=== PATIENT | female | born 1965 | race Caucasian/White ===

== ENCOUNTER 2018-05-05 01:53 | Emergency (ER) | payer SELFPAY ==
[~2018-05-05] VITALS: Ht 157.5 cm; Wt 49.0 kg
[~2018-05-05 01:53] MED LIST: DIPH25CA39 PO; ESCI5TAB PO; LAMO200T34 PO; LORA-654 PO; LURA20TA PO; SERT20CO7 PO; TRAZ150T79 PO
[2018-05-05 03:45] VITALS: BP 153/90
[2018-05-05] MEDS ORDERED: cefTRIAXone SOD 1,000 MG VL IM ONE (04:15)
[2018-05-05] MEDS ORDERED: TETANUS-DIPTH-ACEL PERTUSSIS 0.5ML SYRG IM ONE (04:15)
[2018-05-05] MEDS ORDERED: ACETAMINOPHEN/CODEINE#3 (300/30mg) TAB PO ONE (04:15)
== END 2018-05-05 04:40 | disposition home or self-care (01) ==
LOC: ER 02:15
DX: S61.011A Laceration without foreign body of right thumb without damage to nail, initial encounter (principal); Z88.2 Allergy status to sulfonamides; Z98.51 Tubal ligation status; W45.8XXA Other foreign body or object entering through skin, initial encounter; Y93.89 Activity, other specified; Y99.8 Other external cause status; Y92.89 Other specified places as the place of occurrence of the external cause
CPT/HCPCS: 12001; 90471; 90715; 96372; 99284; J0696

== ENCOUNTER 2025-01-20 20:48 | Emergency (ER) | payer MEDICAID, OTHER ==
[~2025-01-20] VITALS: Ht 157.5 cm; Wt 46.3 kg
[~2025-01-20 20:48] MED LIST changes: +LORA-1121 PO; -LORA-654 PO; -TRAZ150T79 PO; +TRAZ1TAB12 PO
--- NOTE | 2025-01-20 21:17 | ED.PDOC ---
History of Present Illness HPI Comments 59 y/o M, BIBA, with PMHx of seizures and depression presents to the ED for CC of medication refill. Patient reports, he has been out of his Lamictal and Trazodone x1week. Patient denies suicidal ideation, visual hallucinations, or auditory hallucinations. Chief Complaint: Mental Health Time Seen by MD: 21:00 Primary Care Provider: NONE Reviewed Notes: Nurses Notes, Chip Unloader Notes, Medications, Allergies Allergies: Coded Allergies: Phenobarbital (Unverified Allergy, Unknown, 09/17/13) Home Meds Reported Medications Sertraline Hcl (Zoloft) 20 Mg/Ml Con, 20 MG PO, CON 09/17/13 Lurasidone Hydrochloride (LATUDA) 20 Mg Tab, 20 MG PO, TAB 09/17/13 Diphenhydramine Hcl (Benadryl) 25 Mg Cap, 25 MG PO, CAP 09/17/13 Escitalopram Oxalate (Lexapro) 5 Mg Tab, 1 TAB PO DAILY, #30 TAB 2 Refills 09/17/13 Lorazepam (ATIVAN TABLET) 0.5 Mg Tb, 1 TAB PO TID, #90 TAB 09/17/13 Trazodone Hcl (Trazodone Hcl) 150 Mg Tab, 1 TAB PO QPM, #30 TAB 1 Refill 09/17/13 Lamotrigine (Lamotrigine) 200 Mg Tab, 1 TAB PO BID, #60 TAB 2 Refills 09/17/13 Information Source: Patient, Emergency Med Personnel Mode of Arrival: EMS Severity: Moderate Timing: Weeks Duration: Since onset Prehospital treatment: None Medication Refill: Ran out of Medication Past Medical History PAST MEDICAL HISTORY: Depression, Seizures Surgical History: BTL [employer]KEINS History: No Pertinent [employer] History Family History Family History: Unobtainable Social History Smoker: Quit Less Than 1 Year Alcohol: Sober Drugs: Other Constitutional: denies: chills, diaphoresis, fatigue, fever, malaise, sweats, weakness, others EENTM: denies: blurred vision, double vision, ear bleeding, ear discharge, ear drainage, ear pain, ear ringing, eye pain, eye redness, hearing loss, mouth pain, mouth swelling, nasal discharge, nose bleeding, nose congestion, nose pain, photophobia, tearing, throat pain, throat swelling, voice changes, others Respiratory: denies: cough, hemoptysis, orthopnea, SOB at rest, shortness of breath, SOB with excertion, stridor, wheezing, others Cardiovascular: denies: chest pain, dizzy spells, diaphoresis, Dyspnea on exertion, edema, irregular heart beat, left arm pain, lightheadedness, palpitations, PND, syncope, others Gastrointestinal: denies: abdomen distended, abdominal pain, blood streaked bowels, constipated, diarrhea, dysphagia, difficulty swallowing, hematemesis, melena, nausea, poor appetite, poor fluid intake, rectal bleeding, rectal pain, vomiting, others Genitourinary: denies: abnormal vagina bleeding, burning, dyspareunia, dysuria, flank pain, frequency, hematuria, incontinence, pain, , vagina discharge, urgency, others Neurological: denies: dizziness, fainting, headache, left sided numbness, left sided weakness, numbness, paresthesia, pre-existing deficit, right sided numbness, right sided weakness, seizure, speech problems, tingling, tremors, weakness, others Musculoskeletal: denies: back pain, gout, joint pain, joint swelling, muscle pain, muscle stiffness, neck pain, others Integumetry: denies: bruises, change in color, change in hair/nails, dryness, laceration, lesions, lumps, rash, wounds, others Allergic/Immunocompromised: denies: Difficulty Healing, Frequent Infections, Hives, Itching, others Hematologic/Lymphatic: denies: anemia, blood clots, easy bleeding, easy bruising, swollen glands, others Endocrine: denies: excessive hunger, excessive sweating, excessive thirst, excessive urination, flushing, intolerance to cold, intolerance to heat, unexplained weight gain, unexplained weight loss, others Psychiatric: denies: anxiety, bipolar disorder, depression, hopeless, panic disorder, schizophrenia, sleepless, suicidal, others All Other Systems: Reviewed and Negative Physical Exam General Appearance: No Apparent Distress, Normal HEENT: Pharynx Normal Neck: Full Range of Motion, Non-Tender Respiratory: Chest Non-Tender, Lungs Clear, No Respiratory Distress, Normal Breath Sounds Cardiovascular: No Edema, No JVD, No Murmur, No Gallop, Normal Peripheral Pulses, Regular Rate/Rhythm Breast Exam: Deferred Gastrointestinal: No Organomegaly, Non Tender, No Pulsatile Mass, Normal Bowel Sounds, Soft Genitalia: Deferred Pelvic: Deferred Rectal: Deferred Extremities: Normal capillary refill, Normal inspection, Normal range of motion, Non-tender, No pedal edema Musculoskeletal : Apperance: Normal Neurologic: Alert, No Motor Deficits, Normal Affect, Normal Mood, No Sensory Deficits Cerebellar Function: Normal Reflexes: NOT DONE Skin: Dry, Normal Color, Warm Lymphatic: No Adenopathy Was a procedure done? Was a procedure done?: No Differential Dx Considerations may include: MEDICATION REFILL X-Ray, Labs, Meds, VS Vital Signs Date Time Temp Pulse Resp B/P (MAP) Pulse Ox O2 Delivery O2 Flow Rate FiO2 01/20/25 21:06 98.2 82 18 142/77 95 98.2 X-Ray, Labs, Meds, VS Comment Patient's medications refilled based on past history prescription. Patient reports no side effects. States unable to follow up with her psychiatrist over the past two months due to transportation issues. We will script 30 day supply. Advised to take medication as prescribed side effects discussed ER return precautions given patient indicates understanding agrees with discharge plan of care. Time of 1ST Reevaluation: 21:30 Reevaluation 1ST: Unchanged Time of 2ND Reevaluation: 22:03 Reevaluation 2ND: Improved Patient Education/Counseling: Diagnosis, Treatment Family Education/Counseling: No Family Present SEPSIS Sepsis Screen Date sepsis recognized/suspect: Jan 20, 2025 Time Sepsis recognized/suspect: 2052 Recent Procedure: No On Antibiotic Therapy: No Respiratory Rate >20: No Heart Rate >90: No Temp<36 C (96.8 F) or >38.3 C: No SBP <90 or MAP <65 mmHG: No New Acute Mental Status Change: No Is the patient on CPAP, BIPAP,: No Vital Signs Date Time Temp Pulse Resp B/P (MAP) Pulse Ox O2 Delivery O2 Flow Rate FiO2 01/20/25 21:06 98.2 82 18 142/77 95 98.2 Departure 1 Departure Time of Disposition: 21:59 Impression: Primary Impression: Bipolar 1 disorder, mixed Additional Impression: Encounter for medication refill Disposition: HOME / SELF CARE / HOMELESS Condition: Stable e-Prescriptions Trazodone HCl (Trazodone Hydrochloride) 300 Mg Tab 300 MG PO HS for 30 Days, #30 TAB Prov: RIAZ IBRAHIM PAIRER ODDS 01/20/25 Lamotrigine (Lamictal) 100 Mg Tab 3 TAB PO HS for 30 Days, #90 TAB Prov: PATRICERIAZ SUTHERLAND 01/20/25 Discharged With: Self Critical Care Note Critical Care Time?: No Stability Stability form required: No Heart Score Heart Score: Heart Score Response (Comments) Value History N/A 0 EKG N/A 0 Age N/A 0 Risk Factors N/A 0 Troponin N/A 0 Total 0 I personally scribed for ER ([email or web address]) on 01/20/25 at 21:17. Electronically submitted by Wen Kothari ([email or web address]). I personally scribed for ER ([email or web address]) on 01/20/25 at 21:20. Electronically submitted by Wen Kothari ([email or web address]). ER Jan 20, 2025 21:17 RIAZ IBRAHIM Jan 20, 2025 21:27
[2025-01-20 22:01] VITALS: BP 150/83; PULSE 86; RESP 17; TEMP 97.9; O2SAT 96
[2025-01-20] MEDS ORDERED: TRAZ300T16 PO (22:03)
[2025-01-20] MEDS ORDERED: LAM100T PO (22:03)
== END 2025-01-20 22:14 | disposition home or self-care (01) ==
LOC: ER 21:02
DX: F31.60 Bipolar disorder, current episode mixed, unspecified (principal); Z76.0 Encounter for issue of repeat prescription; Z79.899 Other long term (current) drug therapy